=== PATIENT | female | born 1990 | race Caucasian/White ===

== ENCOUNTER 2017-01-19 13:23 | Emergency (ER) | payer MEDICAID ==
[~2017-01-19 13:23] MED LIST: CLINDAMYCIN HC300 MG PO; LAC PO; NOR10T PO; VITC PO
== END 2017-01-19 13:44 | disposition left against medical advice (07) ==
LOC: ED 13:23
DX: Z53.21 Procedure and treatment not carried out due to patient leaving prior to being seen by health care provider (principal)

== ENCOUNTER 2017-05-19 17:15 | Emergency (ER) | payer MEDICAID ==
[~2017-05-19] VITALS: Ht 165.1 cm; Wt 1020.6 kg
[2017-05-19 17:57] VITALS: BP 131/78
== END 2017-05-19 17:58 | disposition home or self-care (01) ==
LOC: ED 17:15
DX: R51 Headache (principal); M54.6 Pain in thoracic spine; Z88.1 Allergy status to other antibiotic agents; V49.60XA Unspecified car occupant injured in collision with unspecified motor vehicles in traffic accident, initial encounter; Y93.19 Activity, other involving water and watercraft; Y92.488 Other paved roadways as the place of occurrence of the external cause; Y99.8 Other external cause status